=== PATIENT | female | born 1985 | race Caucasian/White ===

== ENCOUNTER 2018-04-08 18:04 | Emergency (ER) | payer OTHER ==
--- NOTE | 2018-04-08 18:07 | PDOC ---
History of Present Illness - General History Source: Patient, Family, Old Records Exam Limitations: No Limitations - History of Present Illness Initial Comments: 04/08/18 18:30 The patient is a 33 year old female with a past medical history of anxiety and migraines who presents with a migraine for 5 days. The patient reports that she was visiting her father in [place] over the weekend when her migraine began. She denies any triggering factor/effect. She describes her migraine as sharp in sensation and constant throughout her head but worse on the right side than the left side. She reports associated lightheadedness, nausea, photophobia. She reports a family history of migraines (grandmother, mother, sister). She reports that her LMP was 2 weeks ago and was normal. <Jeremy Jeffers - Last Filed: 04/08/18 18:29> <Len Rincon - Last Filed: 04/09/18 09:20> - General Chief Complaint: Migraine Headache Stated Complaint: MIGRAINE Time Seen by Provider: 04/08/18 18:07 Past History <Jeremy Jeffers - Last Filed: 04/08/18 18:29> <Len Rincon - Last Filed: 04/09/18 09:20> - Past Medical History Allergies/Adverse Reactions: Allergies Allergy/AdvReac Type Severity Reaction Status Date / Time No Known Allergies Allergy Unverified 04/08/18 18:06 Home Medications: Ambulatory Orders NK [No Known Home Medication] 04/08/18 Review of Systems - Review of Systems Able to Perform ROS?: Yes Comments:: 04/08/18 18:30 CONSTITUTIONAL: Absent: fever, chills, diaphoresis, generalized weakness, malaise, loss of appetite HEENT: Absent: rhinorrhea, nasal congestion, throat pain, throat swelling, difficulty swallowing, mouth swelling, ear pain, eye pain, visual Changes CARDIOVASCULAR: Absent: chest pain, syncope, palpitations, irregular heart rate, lightheadedness , peripheral edema RESPIRATORY: Absent: cough, shortness of breath, dyspnea with exertion, orthopnea, wheezing, stridor, hemoptysis GASTROINTESTINAL: Absent: abdominal pain, abdominal distension, vomiting, diarrhea, constipation, melena, hematochezia GENITOURINARY: Absent: dysuria, frequency, urgency, hesitancy, hematuria, flank pain, genital pain MUSCULOSKELETAL: Absent: myalgia, arthralgia, joint swelling SKIN: Absent: rash, itching, pallor HEMATOLOGIC/IMMUNOLOGIC: Absent: easy bleeding, easy bruising, lymphadenopathy, frequent infections ENDOCRINE: Absent: unexplained weight gain, unexplained weight loss, heat intolerance, cold intolerance NEUROLOGIC: (+) Migraine, lightheadedness, nausea, photophobia Absent: unsteady gait, seizure, mental status changes, bladder or bowel incontinence PSYCHIATRIC: Absent: anxiety, depression, suicidal or homicidal ideation, hallucinations. <Jeremy Jeffers - Last Filed: 04/08/18 18:29> *Physical Exam - Vital Signs Last Vital Signs Temp Pulse Resp BP Pulse Ox 98.3 F 79 16 105/69 99 04/08/18 18:06 04/08/18 18:06 04/08/18 18:06 04/08/18 18:06 04/08/18 18:06 - Physical Exam Comments: 04/08/18 18:30 GENERAL: Well-appearing, well-nourished. No apparent distress. HEENT: Normocephalic, atraumatic. PERRL, EOM intact. CARDIOVASCULAR: Normal S1, S2. Regular rate and rhythm. PULMONARY: Clear to auscultation bilaterally. ABDOMEN: Soft, non-distended, non-tender. EXTREMITIES: Normal ROM in all four extremities. No gross deformities. SKIN: Warm, dry. No rash NEUROLOGICAL: No focal neurological deficits. <Jeremy Jeffers - Last Filed: 04/08/18 18:29> ED Treatment Course - LABORATORY CBC & Chemistry Diagram: 04/08/18 18:46 04/08/18 18:46 <Len Rincon - Last Filed: 04/09/18 09:20> Medical Decision Making - Medical Decision Making 04/08/18 18:25 33-year-old with migraines since childhood, four-day history of headache unrelieved by Maxalt and Fiorinal. There is photophobia and nausea without vomiting. No other focal neurological symptoms and no unsteadiness of gait. No missed menses. Examination is benign and this appears consistent with usual pattern migraine. Plan analgesics and observation. Medication administered, continued observation. Signed out to Dr. Rooney 7 PM pending further evaluation. <Len Rincon - Last Filed: 04/09/18 09:20> *DC/Admit/Observation/Transfer - Attestations Scribe Attestion: 04/08/18 18:30 Documentation prepared by Jeremy Jeffers, acting as rn medical surgical for eLn Rincon MD. <Jeremy Jeffers - Last Filed: 04/08/18 18:29> <Len Rincon - Last Filed: 04/09/18 09:20> Diagnosis at time of Disposition: Migraine headache - Discharge Dispostion Disposition: HOME Condition at time of disposition: Stable - Patient Instructions Additional Instructions: Return to the emergency department immediately with ANY new, persistent or worsening symptoms. Continue any medications as previously prescribed by your physician. You should follow up with your primary doctor as soon as possible regarding today's emergency department visit. . Please make sure your doctor reviews the results of your emergency evaluation. Thank you for coming to the Emergency Department today for your care. It was a pleasure to see you today. Please note that your evaluation is INCOMPLETE until you follow-up with your doctor.
[2018-04-08] MEDS ORDERED: ONDANSETRON 4 MG/2 ML VIAL IVPB ONE (18:24)
[2018-04-08] MEDS ORDERED: KETOROLAC TROMETHAMINE 30 MG/1 ML VIAL IVPUSH ONE (18:25)
[2018-04-08 18:27] VITALS: BP 105/69; PULSE 79; TEMP 98.3; BMI 20.3
[2018-04-08] MEDS ORDERED: KETOROLAC TROMETHAMINE 30 MG/1 ML VIAL ONE (18:32)
[2018-04-08] MEDS ORDERED: ONDANSETRON 4 MG/2 ML VIAL ONE (18:32)
[2018-04-08 18:52] LABS: PH,URINE 6.5 (4.5-8); URINE APPEARANCE Clear; URINE BILIRUBIN 1+ (NEGATIVE); URINE GLUCOSE (UA) Negative (NEGATIVE); URINE KETONE 3+ (NEGATIVE); URINE LEUK ESTERASE Negative (NEGATIVE); URINE NITRITE Negative (NEGATIVE)
[2018-04-08 18:58] LABS: BASO % 0.9 % (0-2.0); EOS % 0.7 % (0-4.5); HEMATOCRIT 38.6 % (32.4-45.2); HEMOGLOBIN 13.1 GM/dl (10.7-15.3); LYMPH % 34.5 % (8-40); MCH 29.8 pg (25.7-33.7); MEAN CELL VOLUME 87.8 fl (80-96); MEAN PLT VOLUME 8.4 fl (7.5-11.1); MONO % 5.9 % (3.8-10.2); PLATELET COUNT 355 K/MM3 (134-434); RDW 13.3 % (11.6-15.6); URINE COLOR YELLOW; URINE PROTEIN 1+ (NEGATIVE)
[2018-04-08 19:04] LABS: HCG,QUALITATIVE URINE Negative
--- NOTE | 2018-04-08 19:08 | PDOC ---
*Physical Exam - Vital Signs Last Vital Signs Temp Pulse Resp BP Pulse Ox 98.3 F 79 16 105/69 99 04/08/18 18:06 04/08/18 18:06 04/08/18 18:06 04/08/18 18:06 04/08/18 18:06 ED Treatment Course - LABORATORY CBC & Chemistry Diagram: 04/08/18 18:46 04/08/18 18:46 - ADDITIONAL ORDERS Additional order review: Laboratory Results 04/08/18 18:46 Urine Color Yellow Urine Appearance Clear Urine pH 6.5 Ur Specific [place] 1.025 Urine Protein 1+ H Urine Glucose (UA) Negative Urine Ketones 3+ H Urine Blood Negative Urine Nitrite Negative Urine Bilirubin 1+ H Urine Urobilinogen 1.0 Ur Leukocyte Esterase Negative Urine HCG, Qual Negative 04/08/18 18:46 RBC 4.40 MCV 87.8 MCHC 34.0 RDW 13.3 MPV 8.4 Neutrophils % 58.0 Lymphocytes % 34.5 Monocytes % 5.9 Eosinophils % 0.7 Basophils % 0.9 - Medications Given in the ED: ED Medications Discontinued Medications Generic Name Dose Route Start Last Admin Trade Name Freq PRN Reason Stop Dose Admin Ketorolac Tromethamine 30 mg 04/08/18 18:25 04/08/18 18:43 Toradol Injection - IVPUSH 04/08/18 18:26 30 mg ONCE ONE Administration Ondansetron HCl 4 mg 04/08/18 18:24 04/08/18 18:47 Zofran Injection IVPB 04/08/18 18:25 4 mg ONCE ONE Administration Progress Note - Progress Note Progress Note: This is a 33-year-old female whose care was transferred to ri from Dr. Brian Camejo at 1900 hrs. Patient comes in for a migraine headache. Patient has received Toradol and Zofran for her headache and nausea. We'll reassess patient and once patient feels better patient should be able to be discharged. 19:30 Reevaluation patient still is complaining of a headache. Patient said she doesn' t feel much better. Will medicate with Reglan and IV Tylenol 21:00 Patient feels much better post Reglan and Toradol. Patient feels ready to go home will discharge patient patient will follow-up with her primary care doctor *DC/Admit/Observation/Transfer Diagnosis at time of Disposition: Migraine headache Qualifiers: Migraine type: unspecified Status migrainosus presence: without status migrainosus Intractability: not intractable Qualified Code(s): G43.909 - Migraine, unspecified, not intractable, without status migrainosus - Discharge Dispostion Disposition: HOME Condition at time of disposition: Stable - Referrals - Patient Instructions Additional Instructions: Return to the emergency department immediately with ANY new, persistent or worsening symptoms. Continue any medications as previously prescribed by your physician. You should follow up with your primary doctor as soon as possible regarding today's emergency department visit. . Please make sure your doctor reviews the results of your emergency evaluation. Thank you for coming to the Emergency Department today for your care. It was a pleasure to see you today. Please note that your evaluation is INCOMPLETE until you follow-up with your doctor. - Post Discharge Activity
[2018-04-08 19:10] LABS: ALBUMIN 4.3 g/dl (3.5-5.0); ALK PHOS 34 U/L (32-92); ANION GAP 9 (8-16); BILIRUBIN,TOTAL 0.6 mg/dl (0.2-1.0); BLOOD UREA NITROGEN 18 mg/dl (7-18); CALCIUM 9.3 mg/dl (8.4-10.2); CHLORIDE 104 mmol/L (98-107); CO2 25 mmol/L (22-28); CREATININE 1.2 mg/dl (0.6-1.3); GLUCOSE,RANDOM 99 mg/dl (74-106); POTASSIUM 3.9 mmol/L (3.5-5.1); SGOT/AST 17 U/L (10-42); SGPT/ALT 12 U/L (10-40); SODIUM 138 mmol/L (136-145); TOT PROT 6.8 g/dl (6.4-8.3)
[2018-04-08] MEDS ORDERED: METOCLOPRAMIDE HCL INJECTION 10 MG/2 ML VIAL IVPUSH ONE (19:31)
[2018-04-08] MEDS ORDERED: ACETAMINOPHEN 1000 MG/100 ML VIAL (NON FORMULARY) IVPB ONE (19:32)
[2018-04-08] MEDS ORDERED: ACETAMINOPHEN INJECTION 100 ML IVPB ONE (19:52)
[2018-04-08 19:56] LABS: URINE BACTERIA FEW /hpf (NEGATIVE); URINE RBC 0-2 /hpf (0-3); URINE WBC 0-3 (0-5)
== END 2018-04-08 21:13 | disposition home or self-care (01) ==
LOC: FER 18:04
PROC: 3E033NZ Introduction of Analgesics, Hypnotics, Sedatives into Peripheral Vein, Percutaneous Approach (ICD-10-PCS; principal; 2018-04-08)
PROC: 3E0333Z Introduction of Anti-inflammatory into Peripheral Vein, Percutaneous Approach (ICD-10-PCS; 2018-04-08)
PROC: 3E033GC Introduction of Other Therapeutic Substance into Peripheral Vein, Percutaneous Approach (ICD-10-PCS; 2018-04-08)
DX: G43.909 Migraine, unspecified, not intractable, without status migrainosus (principal)
CPT/HCPCS: 36415; 80053; 81003; 81015; 84703; 85025; 99282-25; J0131